=== PATIENT | male | born 1965 | race Caucasian/White ===

== ENCOUNTER 2019-11-16 14:36 | Emergency (ER) | payer OTHER ==
[2019-11-16] MEDS ORDERED: NORMAL SALINE 1000 ML 1,000 ML IV ONE ×2 (15:09→19:19)
--- NOTE | 2019-11-16 15:11 | ER Document Report ---
ED Medical Screen (RME) - General Chief Complaint: Heat Exposure Stated Complaint: HEAT EXHAUSTION Time Seen by Provider: 11/16/19 15:06 Primary Care Provider: MAYELIN MCELROY MD [Primary Care Provider] - Follow up as needed Notes: HPI: 54-year-old male brought in by EMS and sent to triage for evaluation of cramping in all the extremities that began while he was working outside today. Reports mild shortness of breath no chest pain. Patient denies any significant medical history. States cramping is eased up slightly. PHYSICAL EXAMINATION: Patient somewhat disheveled, lung sounds are clear to auscultation regular rate and rhythm not significantly tachycardic. Mild discomfort on palpation of the bilateral calves and upper arms I have greeted and performed a rapid initial assessment of this patient. A comprehensive ED assessment and evaluation of the patient, analysis of test results and completion of medical decision making process will be conducted by an additional ED providers. TRAVEL OUTSIDE OF THE [place] IN LAST 30 DAYS: No - Related Data Allergies/Adverse Reactions: No Known Allergies Allergy (Verified 12/03/14 08:34) Past Medical History - Social History Frequency of alcohol use: None Drug Abuse: None - Past Medical History Cardiac Medical History: Reports: Hx Hypercholesterolemia Pulmonary Medical History: Denies: Hx Tuberculosis Past Surgical History: Reports: Hx Cardiac Catheterization. Denies: Hx Pacemaker - Immunizations Hx Diphtheria, Pertussis, Tetanus Vaccination: Yes Physical Exam - Vital signs Vitals: Temp Pulse Resp BP Pulse Ox 98.7 F 95 20 116/70 98 11/16/19 14:51 11/16/19 14:51 11/16/19 14:51 11/16/19 14:51 11/16/19 14:51 Course - Vital Signs Vital signs: Temp Pulse Resp BP Pulse Ox 98.7 F 95 20 116/70 98 11/16/19 14:51 11/16/19 14:51 11/16/19 14:51 11/16/19 14:51 11/16/19 14:51 Doctor's Discharge - Discharge Referrals: MAYELIN MCELROY MD [Primary Care Provider] - Follow up as needed
[2019-11-16 15:51] LABS: ABSOLUTE BASOPHILS # (AUTO) 0.1 10^3/uL (0.0-0.2); ABSOLUTE EOSINOPHILS # (AUTO) 0.1 10^3/uL (0.0-0.6); ABSOLUTE LYMPHOCYTES (AUTO) 1.6 10^3/uL (0.5-4.7); ABSOLUTE MONOCYTES (AUTO) 1.1 10^3/uL (0.1-1.4); ABSOLUTE NEUT (AUTO) 10.3 10^3/uL (1.7-8.2); BASOPHILS % (AUTO) 0.9 % (0-2); EOSINOPHILS % (AUTO) 0.4 % (0-6); HEMATOCRIT 50.9 % (37.9-51.0); HEMOGLOBIN 17.4 g/dL (13.5-17.0); LYMPHOCYTES % (AUTO) 12.2 % (13-45); MEAN CORPUSCULAR HEMOGLOBIN 32.4 pg (27.0-33.4); MEAN CORPUSCULAR HGB CONC 34.3 g/dL (32.0-36.0); MEAN CORPUSCULAR VOLUME 95 fl (80-97); MONOCYTES % (AUTO) 8.1 % (3-13); PLATELET COUNT 225 10^3/uL (150-450); RED BLOOD COUNT 5.38 10^6/uL (4.35-5.55); RED CELL DISTRIBUTION WIDTH 13.9 % (11.5-14.0); SEGMENTED NEUTROPHILS % (AUTO) 78.4 % (42-78); TOTAL CELLS COUNTED % (AUTO) 100 %; WHITE BLOOD COUNT 13.2 10^3/uL (4.0-10.5)
[2019-11-16 16:13] LABS: ALKALINE PHOSPHATASE 136 U/L (38-126); ANION GAP 10 (5-19); ASPARTATE AMINO TRANSFERASE 44 U/L (17-59); BILIRUBIN,DIRECT 0.3 mg/dL (0.0-0.4); BILIRUBIN,TOTAL 2.2 mg/dL (0.2-1.3); BLOOD UREA NITROGEN 24 mg/dL (7-20); CALCIUM 10.2 mg/dL (8.4-10.2); CARBON DIOXIDE 24 mmol/L (22-30); CHLORIDE 99 mmol/L (98-107); CREATINE KINASE 743 U/L (55-170); GLUCOSE 113 mg/dL (75-110); TOTAL PROTEIN 8.5 g/dL (6.3-8.2)
[2019-11-16 16:18] LABS: ALCOHOL < 10 mg/dL (NONE DETECTED)
[2019-11-16 20:30] LABS: AMORPHOUS SEDIMENT,URINE TRACE /HPF; APPEARANCE,URINE CLOUDY; BILIRUBIN,URINE NEGATIVE (NEGATIVE); CALCIUM OXALATE CRYSTALS,URINE MANY /HPF; GLUCOSE, URINE NEGATIVE (NEGATIVE); KETONES,URINE TRACE mg/dL (NEGATIVE); LEUKOCYTE ESTERASE,URINE NEGATIVE (NEGATIVE); NITRITE,URINE NEGATIVE (NEGATIVE); PROTEIN,URINE 100 mg/dL (NEGATIVE); URINE SPECIFIC GRAVITY 1.026
[2019-11-16 20:32] LABS: COLOR,URINE DARK YELLOW; URINE AMPHETAMINES SCREEN NEGATIVE; URINE BARBITURATES SCREEN NEGATIVE; URINE BENZODIAZEPINES SCREEN NEGATIVE; URINE METHADONE SCREEN NEGATIVE; URINE PHENCYCLIDINE SCREEN NEGATIVE
[2019-11-16 20:33] LABS: URINE COCAINE SCREEN UNCONFIRMED POSITIVE; URINE MARIJUANA (THC) SCREEN UNCONFIRMED POSITIVE
--- NOTE | 2019-11-16 21:06 | ER Document Report ---
ED Heat Exposure - General Chief Complaint: Heat Exposure Stated Complaint: HEAT EXHAUSTION Time Seen by Provider: 11/16/19 15:06 Primary Care Provider: MAYELIN MCELROY MD [Primary Care Provider] - Follow up as needed Mode of Arrival: Ambulatory Information source: Patient Notes: 54-year-old man who presents with a history of working outside on siding of the home when he became having cramping in his muscles and feelings shortness of breath. He been working in the heat for 3 to 4 hours. He denies a diuretic medications or diabetes mellitus.. TRAVEL OUTSIDE OF THE [place] IN LAST 30 DAYS: No - Related Data Allergies/Adverse Reactions: No Known Allergies Allergy (Verified 12/03/14 08:34) Past Medical History - Social History Smoking Status: Current Some Day Smoker Frequency of alcohol use: None Drug Abuse: None Family History: Reviewed & Not Pertinent - Past Medical History Cardiac Medical History: Reports: Hx Hypercholesterolemia Pulmonary Medical History: Denies: Hx Tuberculosis Neurological Medical History: Reports: Hx Migraine Past Surgical History: Reports: Hx Cardiac Catheterization. Denies: Hx Pacemaker - Immunizations Hx Diphtheria, Pertussis, Tetanus Vaccination: Yes Review of Systems - Review of Systems Notes: Constitutional: Negative for fever. HENT: Negative for sore throat. Eyes: Negative for visual changes. Cardiovascular: Negative for chest pain. Respiratory: +shortness of breath. Gastrointestinal: Negative for abdominal pain, vomiting or diarrhea. Genitourinary: Negative for dysuria. Musculoskeletal: + Muscle spasm Skin: Negative for rash. Neurological: Negative for headaches, weakness or numbness. 10 point ROS negative except as marked above and in HPI. Physical Exam - Vital signs Vitals: Temp Pulse Resp BP Pulse Ox 98.7 F 95 20 116/70 98 11/16/19 14:51 11/16/19 14:51 11/16/19 14:51 11/16/19 14:51 11/16/19 14:51 - Notes Notes: PHYSICAL EXAMINATION: Physical Exam: General: Well-nourished well-developed 54-year-old man mild distress secondary to muscle spasms HEENT: NC/AT, pupils equal round and reactive to light, MM moist,nares clear, oropharynx clear, airway patent Neck: supple, no adenopathy, no masses. Good range of motion Lungs: clear, no wheezing, no rales no rhonchi CVS: Regular rate and rhythm no murmur gallop or rub Abdomen: Soft, active, nontender, no masses, no hepatosplenomegaly Ext: + Soreness in the calf muscles.. Neuro: Alert and responsive, moving all 4 extremities on command, cranial nerves intact, no focal findings Skin: Intact no open lesions, no rash PSYCH: Normal mood, normal affect. Course - Re-evaluation Re-evalutation: 11/16/19 21:09 54-year-old man working outside in the sun states that he was soaked in sweat and began having cramping all over. He was given 2 L of normal saline in the emergency department, labs were performed, creatinine was 1.77. I explained to the patient that he is suffered from heat exhaustion/heat stroke. The muscle spasms and cramps are secondary to loss of fluids and sweating. He is feeling better and is being discharged home I have encouraged him to continue to push fluids, Gatorade, water and to follow-up with his primary care doctor if needed. He acknowledges understanding of this plan and states he is ready for discharge. - Vital Signs Vital signs: Temp Pulse Resp BP Pulse Ox 98.7 F 95 20 116/70 98 11/16/19 14:51 11/16/19 14:51 11/16/19 14:51 11/16/19 14:51 11/16/19 14:51 - Laboratory Result Diagrams: 11/16/19 15:15 11/16/19 15:15 Laboratory results interpreted by me: 11/16/19 11/16/19 11/16/19 15:15 15:15 18:47 WBC 13.2 H Hgb 17.4 H Lymph % (Auto) 12.2 L Absolute Neuts (auto) 10.3 H Seg Neutrophils % 78.4 H Sodium 133.4 L BUN 24 H Creatinine 1.77 H Est GFR ( Amer) 49 L Est GFR (MDRD) Non-Af 40 L Glucose 113 H Total Bilirubin 2.2 H Alkaline Phosphatase 136 H Creatine Kinase 743 H Total Protein 8.5 H Urine Protein 100 H Urine Ketones TRACE H Urine Blood SMALL H Urine Urobilinogen 2.0 H - EKG Interpretation by Hi EKG shows normal: Sinus rhythm, [place] - Normal, Intervals - Normal, QRS Complexes - Normal, ST-T Waves - No acute ST or T wave abnormalities, no ischemic findings. Rate: Normal - Rate is 88 Discharge - Discharge Clinical Impression: Heat cramp, initial encounter Condition: Good Disposition: HOME, SELF-CARE Additional Instructions: You were seen in the emergency department with heat related cramping. This is usually related to loss of body fluids and exposure to heat. You are encouraged to continue to push fluids, Gatorade, or water. Tomorrow encourage you to avoid prolonged exposure to the heat as a recurrence of the cramping may occur. If you have further difficulties or worsening symptoms you may return to the emergency department. HOME CARE INSTRUCTIONS & INFORMATION: Thank you for choosing us for your medical needs. We hope you're satisfied with the care you received. After you leave, you must properly care for your problem and, at the same time, observe its progress. Any condition can change. Some illnesses can change rapidly over hours or days. If your condition worsens, return to the Emergency Department or see your physician promptly. ABOUT YOUR X-RAYS AND EKG'S: If you had an EKG or X-rays taken, they have been read by the Emergency Physician. The X-rays and EKG's will also be read by a Radiologist or Circuit Breaker Supervisor within 24 hours. If discrepancies are noted, you will be notified by telephone. Please be certain the ED has a correct telephone number & address where you can be reached. Also, realize that some fractures or abnormalities do not show up on initial X-rays. If your symptoms continue, see your physician. ABOUT YOUR LABORATORY TEST: If you had laboratory tests, the results have been reviewed by the Emergency Physician. Some test results (for example cultures) may not be available for several days. You will be contacted if any test result shows you need additional treatment. Please be certain the ED has a correct telephone number and address where you can be reached. ABOUT YOUR MEDICATIONS: You will receive instructions on how to take your medicine on the prescription label you receive. Additional information may be provided by the Pharmacy. If you have questions afterwards, call the ED for clarification or further instructions. Some prescribed medications may cause drowsiness. Do not perform tasks such as driving a car or operating machinery without consulting your Pharmacist. If you feel you need a refill of pain medication, your condition will need re-evaluation. Please do not call for a refill of any medication. ABOUT YOUR SIGNATURE: Signature of this document acknowledges to followin. Understanding that you received emergency treatment and that you may be released before al medical problems are known or treated. Please be certain the ED has a correct phone number & address where you can be reached. 2. Acknowledgement that you will arrange for follow-up care as recommended. 3. Authorization for the Emergency Physician to provide information to your follow-up Physician in order to maximize your care. AT ANY TIME, IF YOUR SYMPTOMS CHANGE SIGNIFICANTLY OR WORSEN OR YOU DEVELOP NEW SYMPTOMS, RETURN TO THE EMERGENCY DEPARTMENT IMMEDIATELY FOR RE-EVALUATION. OUR GOAL IS TO PROVIDE EXCELLENT MEDICAL CARE! WE HOPE THAT WE HAVE MET YOUR EXPECTATIONS DURING YOUR EMERGENCY DEPARTMENT VISIT AND THAT YOU FEEL YOU HAVE RECEIVED EXCELLENT CARE! Referrals: MAYELIN MCELROY MD [Primary Care Provider] - Follow up as needed
[2019-11-16 21:39] VITALS: BP 132/80
--- NOTE | 2019-11-17 01:12 | EKG REPORT ---
SEVERITY:- NORMAL ECG - SINUS RHYTHM : Confirmed by: Wendy Holguin MD 17-Nov-2019 01:11:48
== END 2019-11-16 21:31 | disposition home or self-care (01) ==
LOC: ER 14:36
DX: T67.2XXA Heat cramp, initial encounter (principal); X30.XXXA Exposure to excessive natural heat, initial encounter; Y93.H9 Activity, other involving exterior property and land maintenance, building and construction; Y92.009 Unspecified place in unspecified non-institutional (private) residence as the place of occurrence of the external cause; R06.02 Shortness of breath; F17.200 Nicotine dependence, unspecified, uncomplicated
CPT/HCPCS: 93005; 99284; 96360; 96361; 36415; 80307 ×2; 82550; 83735; 85025; 80053; 81001; 84484; 93010; J7030